=== PATIENT | female | born 1985 | race Caucasian/White ===

== ENCOUNTER → 2018-02-14 | Outpatient (CLI) | payer OTHER ==
--- NOTE | 2018-02-14 17:24 | CONS ---
CONSULTATION REASON FOR EVALUATION: Excessive fatigue. This is a 32-year-old female patient who presented today with excessive tiredness and sleepiness that has been going on for a few years. The patient works at a [employer]. She goes to bed around 11 p.m., wakes up at 6:30 a.m. in the morning. She has been told that she snores. She is able to average a good 7 hours of sleep and she typically wakes up refreshed. She does not fall asleep during day-to-day activities, does not fall asleep while doing computer work. She does not utilize any form of energy drinks of caffeine to keep herself stimulated. She has been feeling fatigued and tired, especially since she has gained about 30 pounds over the past few years. Her [place] score is at 3. No witnessed apneas. No insomnia. No nocturia. No grinding of the teeth. No restlessness in the lower extremities. She is a mouth breather. No history of any psychotic disorder. No history of any medical disorders. PAST MEDICAL HISTORY: Negative. PAST SURGICAL HISTORY: Negative. DRUG ALLERGIES: NOT KNOWN. MEDICATIONS: Oral contraception pills. SOCIAL HISTORY: Nonsmoker. No history of alcoholism. No history of IV drugs. FAMILY HISTORY: Negative for sleep apnea. REVIEW OF SYSTEMS: Twelve-point review of systems was done. Positive for weight gain. She wakes up once in the middle of the night, yet she has no problems going back to sleep. She sleeps on her stomach. She does not take any naps during the day. Able to function well at work. No palpitations at nighttime. No heartburn at nighttime. No problems with memory and concentration. No problems with attention span. PHYSICAL EXAMINATION: BP is 136/70, pulse 98, respirations 16, temperature 98.3, saturation 98% on room air. BMI is 39.4. Weight is 230. Height is 5 feet 4 inches, neck size 14. GENERAL APPEARANCE: Calm, comfortable. Head is atraumatic, normocephalic. NECK: Supple. There is no JVD. No goiter or neck masses. Mallampati class IV. LUNGS: Clear to auscultation. HEART: Heart sounds are regular rate and rhythm. Normal S1, S2. No S3, S4. No murmurs. ABDOMEN: Soft, nontender. No organomegaly. EXTREMITIES: No edema. No cyanosis or clubbing. NEUROLOGIC: Alert and oriented x3. No focal neurological deficits. PSYCHIATRY: Negative for anxiety or depression. IMPRESSION: 1. Chronic fatigue, under investigation. Obstructive sleep apnea is possible; however, my overall pre-test probability for obstructive sleep apnea is quite low, based on her symptoms and clinical features. 2. Obesity with body mass index of 39.4. 3. Loud snoring. PLAN: 1. Home sleep study, looking for any significant sleep breathing disorder to treat. 2. Weight loss. 3. Implement good sleep hygiene measures. 4. Will continue to follow and make further recommendations based on the results of the sleep study. MMODL / IJN: [id number] /
== END ==
LOC: SLEEP 15:24
PROVIDERS: ATTEND Internal Medicine Critical Care Medicine
DX: R53.83 Other fatigue (principal); R06.83 Snoring; E66.9 Obesity, unspecified; Z68.39 Body mass index [BMI] 39.0-39.9, adult; Z79.899 Other long term (current) drug therapy
CPT/HCPCS: 99211